=== PATIENT | male | born 2000 | race Caucasian/White ===

== ENCOUNTER 2022-06-21 08:51 | Outpatient (CLI) | payer BC, SELFPAY ==
[2022-06-21 14:04] LABS: HIV 1/2/P24 Combo Screen* Negative (Negative)
[2022-06-21 14:11] LABS: Hepatitis C Virus Antibody* Negative (Negative)
[2022-06-21 14:13] LABS: Chlamydia DNA Amplified* NOT DETECTED (No Detected); GC DNA Amplified* NOT DETECTED (No Detected)
[2022-06-24 06:53] LABS: Treponema pallidum VDRL Serum Non Reactive (Non Reactive)
== END 2022-06-21 08:52 | disposition home or self-care (01) ==
PROVIDERS: PCP Family Medicine; Visit Provider Family Medicine
DX: Z11.3 Encounter for screening for infections with a predominantly sexual mode of transmission (principal)
CPT/HCPCS: 86592; 86593; 86703; 86803; 87491; 87591

== ENCOUNTER 2022-09-27 08:22 | Outpatient (CLI) | payer BC, SELFPAY | END 2022-09-27 08:23 | disposition home or self-care (01) | PROVIDERS: PCP Family Medicine; Visit Provider Family Medicine | DX: Z11.3 Encounter for screening for infections with a predominantly sexual mode of transmission (principal) | CPT/HCPCS: 86592; 86703; 86803 ==

== ENCOUNTER 2023-03-27 13:30 | Outpatient (CLI) | payer BC, SELFPAY | END 2023-03-27 13:31 | disposition home or self-care (01) | PROVIDERS: PCP Family Medicine; Visit Provider Internal Medicine | DX: Z11.3 Encounter for screening for infections with a predominantly sexual mode of transmission (principal) | CPT/HCPCS: 86703; 87491; 87591 ==